=== PATIENT | male | born 2000 | race Two or more races ===

== ENCOUNTER 2024-05-11 15:01 | Day surgery (SDC) | payer SELFPAY ==
[2024-05-11] MEDS ORDERED: Rocuronium Bromide 10 MG/ML (10ML VIAL) ONE (15:34)
[2024-05-11] MEDS ORDERED: Ondansetron PF 4 MG/2 ML Vial ONE (15:34)
[2024-05-11] MEDS ORDERED: Lidocaine 1% PF 5 ML VIAL ONE (15:34)
[2024-05-11] MEDS ORDERED: Dexamethasone 20 MG/5 ML VIAL ONE (15:34)
[2024-05-11] MEDS ORDERED: Ketorolac Tromethamine 30 MG (1 mL) VIAL ONE (15:34)
[2024-05-11] MEDS ORDERED: PROPOFOL 200 MG/20 ML VIAL ONE (15:34)
== END 2024-05-11 18:14 | disposition home or self-care (01) ==
LOC: SDC/OP 15:01
PROVIDERS: ATTEND Specialist
PROC: 0DTJ4ZZ Resection of Appendix, Percutaneous Endoscopic Approach (ICD-10-PCS; principal; 2024-05-11)
DX: K35.33 Acute appendicitis with perforation, localized peritonitis, and gangrene, with abscess (principal); F17.200 Nicotine dependence, unspecified, uncomplicated; Z79.2 Long term (current) use of antibiotics
CPT/HCPCS: 88304; A4314; A4649; C1713; J1100; J1885; J2405; J2704